=== PATIENT | female | born 1930 | race Caucasian/White ===

== ENCOUNTER → 2017-02-19 | Outpatient (CLI) | payer MEDICARE ==
[~2017-02-19] MED LIST: AMOX1TAB64 PO; BISA10SU54 PR; BUDE0.5A INH; BUDE0.5A11 NPPB; BUDE10.2 INH; CIPR500T87 PO; ENOX100S5 SQ; LACT1CAP4 PO; LIPA1CAP22 PO; LISI-167 PO; LISI5TAB7 PO; LISIN PO; MULT-257 PO; OMEP-110 PO; OXYC1TAB7 PO; POTA25TA4 PO; POTASSIUM PO; SYMBICORT
== END | disposition home or self-care (01) ==
LOC: PETCFH 08:44
PROVIDERS: ATTEND Internal Medicine Hematology & Oncology
DX: C25.0 Malignant neoplasm of head of pancreas (principal); K76.89 Other specified diseases of liver; M89.9 Disorder of bone, unspecified; I25.10 Atherosclerotic heart disease of native coronary artery without angina pectoris; R91.8 Other nonspecific abnormal finding of lung field; J32.0 Chronic maxillary sinusitis; E27.9 Disorder of adrenal gland, unspecified; Z90.49 Acquired absence of other specified parts of digestive tract
CPT/HCPCS: 78815; A9552